=== PATIENT | male | born 1995 | race Caucasian/White ===

== ENCOUNTER 2019-08-02 18:32 | Emergency (ER) | payer BC ==
[~2019-08-02] VITALS: Ht 165.1 cm; Wt 92.8 kg
[2019-08-02 18:50] VITALS: Ht 165.1 cm; Wt 92.8 kg
[2019-08-02 19:55] VITALS: BP 126/77
== END 2019-08-02 19:55 | disposition home or self-care (01) ==
LOC: ED 18:32
DX: J45.909 Unspecified asthma, uncomplicated (principal); J03.90 Acute tonsillitis, unspecified
CPT/HCPCS: J2920